=== PATIENT | female | born 1965 | race Caucasian/White ===

== ENCOUNTER 2017-09-14 12:31 | Outpatient (CLI) | payer BC, OTHER | END 2017-09-14 12:32 | disposition home or self-care (01) | LOC: BICMRI 12:31 | PROVIDERS: ATTEND Nurse Practitioner Family | DX: M25.561 Pain in right knee (principal); S83.281A Other tear of lateral meniscus, current injury, right knee, initial encounter; M22.41 Chondromalacia patellae, right knee ==

== ENCOUNTER 2018-01-13 09:59 | Outpatient (CLI) | payer BC | END 2018-01-13 10:00 | disposition home or self-care (01) | LOC: BICMAMMO 09:59 | PROVIDERS: ATTEND Family Medicine | DX: Z12.31 Encounter for screening mammogram for malignant neoplasm of breast (principal) | CPT/HCPCS: 77063; 77067 ==

== ENCOUNTER 2019-02-20 09:04 | Outpatient (CLI) | payer MEDICARE ==
--- NOTE | 2019-02-20 10:49 | MRI ---
MRI CERVICAL SPINE WITHOUT CONTRAST: 02/20/2019 HISTORY: Cervical stenosis, neck and shoulder pain, upper back pain. COMPARISON: 03/10/2016 TECHNIQUE: Multiplanar multisequence MR imaging of the cervical spine without contrast FINDINGS: The sagittal STIR imaging demonstrates no focal area of osseous marrow edema. There is no significant anterolisthesis or retrolisthesis within the cervical spine. C2-3: Disc space narrowing and disc desiccation. No central canal stenosis. Facet and uncovertebral o steophyte formation on the left noted with moderate left neural foraminal stenosis, not significantly changed. No significant right neural foraminal stenosis. C3-4: There is disc space narrowing and disc desiccation with mild disc bulge and mild central canal stenosis, stable. Mild bilateral facet and uncovertebral osteophyte formation, left greater than right. Mild stable left neural foraminal stenosis. No significant right neural foraminal stenosis. C4-5: There is disc space narrowing and disc desiccation with mild disc bulge effacing the ventral th ecal sac and leading to a moderate degree of stable central canal stenosis. Facet and uncovertebral osteophyte formation noted bilaterally with moderate/severe bilateral neural foraminal stenosis, not significantly changed. C5-6: There is disc space narrowing and disc desiccation with disc bulge effacing the ventral thecal sac and leading to a mild/moderate stable degree of central canal stenosis. Facet and uncovertebral osteophyte formation noted with bilateral moderate neural foraminal stenosis. C6-7: There is disc space narrowing and disc desiccation with partial effacement of the ventral theca l sac and mild central canal stenosis, not significantly changed. Mild bilateral neural foraminal stenosis on the basis of mild bilateral facet hypertrophy. C7-T1: No central canal or neural foraminal stenosis. There is no focal area of abnormal signal intensity identified within the cervical cord. IMPRESSION: Multilevel degenerative change within the cervical spine as described above. Transcribed Date/Time: 02/20/2019 11:50 AM
== END 2019-02-20 09:05 | disposition home or self-care (01) ==
LOC: BICMRI 09:04
PROVIDERS: ATTEND Anesthesiology Pain Medicine
DX: M48.02 Spinal stenosis, cervical region (principal); M47.812 Spondylosis without myelopathy or radiculopathy, cervical region
CPT/HCPCS: 72141

== ENCOUNTER 2019-06-29 15:38 | Outpatient (CLI) | payer MEDICARE ==
--- NOTE | 2019-06-29 16:03 | RAD ---
EXAM: XR Cerv Sp Ap Lat STANDARD PROVIDED CLINICAL HISTORY: Cervical radiculopathy. COMPARISON: None FINDINGS: C1 to cervicothoracic junction is seen on the lateral view. Postsurgical changes related to anterior cervical fusion are present with anterior plate and screws transfixing the C4-5 and C5-6 levels with intradiscal prostheses present. No hardware complication is seen. There is mild narrowing of the C3-4 intervertebral disc space with mild osteophytes present at this level. Mild osteophytes are also seen at the C6-7 level. Trace anterolisthesis of C2 on C3 is noted likely attributable to facet degenerative changes. No fracture is identified. Prevertebral soft tissues are within normal limits. IMPRESSION: 1. Postsurgical changes cervical spine with mild degenerative changes above and below the level of po stsurgical change. 2. Trace anterolisthesis of C2 on C3.
== END 2019-06-29 15:39 | disposition home or self-care (01) ==
LOC: TBSIIMAG 15:38
PROVIDERS: ATTEND Neurological Surgery
DX: M47.22 Other spondylosis with radiculopathy, cervical region (principal); M43.12 Spondylolisthesis, cervical region; Z98.1 Arthrodesis status
CPT/HCPCS: 72040

== ENCOUNTER 2020-10-01 10:57 | Outpatient (CLI) | payer OTHER | END 2020-10-01 10:58 | disposition home or self-care (01) | LOC: BICMAMMO 10:57 | PROVIDERS: ATTEND Family Medicine | DX: Z12.31 Encounter for screening mammogram for malignant neoplasm of breast (principal) | CPT/HCPCS: 77063; 77067 ==

== ENCOUNTER 2022-12-23 18:00 | Outpatient (CLI) | payer MEDICARE | END 2022-12-23 18:01 | disposition home or self-care (01) | LOC: SLEEPLAB 18:00 | PROVIDERS: ATTEND Nurse Practitioner Family | DX: G47.33 Obstructive sleep apnea (adult) (pediatric) (principal); G47.61 Periodic limb movement disorder; I10 Essential (primary) hypertension; R51.9 Headache, unspecified; R06.83 Snoring; R35.1 Nocturia; R53.83 Other fatigue; R09.89 Other specified symptoms and signs involving the circulatory and respiratory systems | CPT/HCPCS: 95800 ==

== ENCOUNTER 2023-11-25 10:54 | Outpatient (CLI) | payer MEDICARE | END 2023-11-25 10:55 | disposition home or self-care (01) | LOC: BICMAMMO 10:54 | PROVIDERS: ATTEND Family Medicine | DX: Z12.31 Encounter for screening mammogram for malignant neoplasm of breast (principal); N63.20 Unspecified lump in the left breast, unspecified quadrant | CPT/HCPCS: 77063; 77067 ==

== ENCOUNTER 2023-12-02 09:24 | Outpatient (CLI) | payer MEDICARE | END 2023-12-02 09:25 | disposition home or self-care (01) | LOC: BICMAMMO 09:24 | PROVIDERS: ATTEND Family Medicine | DX: N63.25 Unspecified lump in the left breast, overlapping quadrants (principal) | CPT/HCPCS: 76642; 77065; G0279 ==

== ENCOUNTER 2024-02-09 09:51 | Outpatient (CLI) | payer MEDICARE | END 2024-02-09 09:52 | disposition home or self-care (01) | LOC: SCSMRI 09:51 | PROVIDERS: ATTEND Specialist | DX: M47.24 Other spondylosis with radiculopathy, thoracic region (principal); M47.26 Other spondylosis with radiculopathy, lumbar region; M47.817 Spondylosis without myelopathy or radiculopathy, lumbosacral region; M47.22 Other spondylosis with radiculopathy, cervical region; Z98.890 Other specified postprocedural states | CPT/HCPCS: 72141; 72146; 72148 ==

== ENCOUNTER 2025-02-09 08:57 | Outpatient (CLI) | payer MEDICARE | END 2025-02-09 08:58 | disposition home or self-care (01) | LOC: SCSRAD 08:57 | PROVIDERS: ATTEND Family Medicine | DX: M75.22 Bicipital tendinitis, left shoulder (principal) ==